=== PATIENT | female | born 1965 | race Caucasian/White ===

== ENCOUNTER 2021-01-09 18:28 | Emergency (ER) | payer OTHER ==
[~2021-01-09 18:28] MED LIST: ASPIRIN CHEWABL81 MG PO; BENZONATATE200 MG PO; MEDROL4 MG PO; NITROSTAT0.4 MG SL; OMNICEF 300 MG300 MG PO; TAMIFLU75 MG PO
[2021-01-09 19:00] LABS: HEMOGLOBIN 16.1 gm/dl (12.3-15.3); RED BLOOD COUNT 5.09 M/UL (4.00-5.10); WHITE BLOOD COUNT 9.8 K/UL (4.5-11.0)
[2021-01-09 19:24] LABS: BUN/CREATININE RATIO 9 (0-10)
== END 2021-01-09 20:39 | disposition home or self-care (01) ==
LOC: ER1 18:28
PROVIDERS: Emergency Medicine
DX: G45.9 Transient cerebral ischemic attack, unspecified (principal); J44.9 Chronic obstructive pulmonary disease, unspecified; F17.200 Nicotine dependence, unspecified, uncomplicated
CPT/HCPCS: 70450; 71045; 80053; 81001; 82550; 82553; 83874; 84484; 85025; 85610; 85730; 93005; 99285